=== PATIENT | male | born 1995 | race Caucasian/White ===

== ENCOUNTER 2021-10-30 22:47 | Emergency (ER) | payer OTHER ==
[2021-10-31 00:27] VITALS: O2SAT 97
[2021-10-31 00:44] LABS: Appearance CLEAR (CLEAR); Bilirubin NEGATIVE (NEGATIVE); Dipstick done @ ? MAIN LAB; Glucose NEGATIVE (NEGATIVE); Ketones NEGATIVE (NEGATIVE); Nitrite NEGATIVE (NEGATIVE); Ph 6.5 (5-6); Protein,Urine Dip NEGATIVE (Negative); RBC NEGATIVE Ery/ul (0-5); Urobilinogen 0.2 mg/dL (0-1)
[2021-10-31 00:46] LABS: Mucus SLIGHT /HPF (NEGATIVE); WBC 0-2 /HPF (0-5)
[2021-10-31 00:47] LABS: Urine Cultured Indicated? NO
--- NOTE | 2021-10-31 01:37 | ERPHSYRPT ---
- History of Present Illness Time Seen by Provider: 10/30/21 23:25 Source: patient Exam Limitations: no limitations Patient Subjective Stated Complaint: pt states "I have had trouble peeing. When I do pee it goes everywhere. My mom said there looks like there is something in there." Triage Nursing Assessment: pt ambulated into the er; pt is axo x4; c/o burning with urination; pt denies pain; active bowel sounds in all quads; unable to assess urine; vitals wnl Physician History: Patient is a 26-year-old male presents to emergency department for evaluation of difficulty urinating. Patient states when he urinates his "pee goes everywhere". Patient believes there is something at the distal tip of his urethra. Patient states his mother examined his penis and thinks she identified something in the tip of the penis. Patient states he is experiencing some dysuria. No trauma. No fever. Symptoms have been ongoing for 1 day. No nausea vomiting or diaphoresis. No flank pain or abdominal pain. No hematuria. Patient denies a history of the same. No history of STD. Patient voices no other complaints or concerns at this time. Timing/Duration: today Severity: moderate Modifying Factors: Improves With: nothing Associated Symptoms: denies symptoms Allergies/Adverse Reactions: Sulfa (Sulfonamide Antibiotics) Allergy (Verified 10/30/21 23:13) Hx Tetanus, Diphtheria Vaccination/Date Given: Yes Hx Influenza Vaccination/Date Given: No Hx Pneumococcal Vaccination/Date Given: No Immunizations Up to Date: Yes Travel Risk - International Travel Have you traveled outside of the country in past 3 weeks: No - Coronavirus Screening Are you exhibiting any of the following symptoms?: No Close contact with a COVID-19 positive Pt in past 14-21 Days: No - Vaccine Status Have you recieved a Covid-19 vaccination: No - Review of Systems Constitutional: No Symptoms, No Fever, No Chills Eyes: No Symptoms Ears, Nose, & Throat: No Symptoms Respiratory: No Symptoms, No Cough, No Dyspnea Cardiac: No Symptoms, No Chest Pain, No Edema, No Syncope Abdominal/Gastrointestinal: No Symptoms, No Abdominal Pain, No Nausea, No Vomiting, No Diarrhea Genitourinary Symptoms: No Symptoms, No Dysuria Musculoskeletal: No Symptoms, No Back Pain, No Neck Pain Skin: No Symptoms, No Rash Neurological: No Symptoms, No Dizziness, No Focal Weakness, No Sensory Changes Psychological: No Symptoms Endocrine: No Symptoms Hematologic/Lymphatic: No Symptoms Immunological/Allergic: No Symptoms All Other Systems: Reviewed and Negative - Past Medical History Pertinent Past Medical History: Yes Psycho-Social History: Attention Deficit Disorder - Past Surgical History Past Surgical History: No - Social History Smoking Status: Never smoker Exposure to second hand smoke: No Drug Use: none Patient Lives Alone: No - Nursing Vital Signs Nursing Vital Signs: Initial Vital Signs Temperature 97.8 F 10/30/21 23:15 Pulse Rate 84 10/30/21 23:15 Respiratory Rate 18 10/30/21 23:15 Blood Pressure 145/86 10/30/21 23:15 O2 Sat by Pulse Oximetry 96 10/30/21 23:15 Pain Scale Pain Intensity 0 - Physical Exam General Appearance: no apparent distress, alert Eye Exam: PERRL/EOMI, eyes nml inspection Ears, Nose, Throat Exam: normal ENT inspection, TMs normal, pharynx normal, moist mucous membranes Neck Exam: normal inspection, non-tender, supple, full range of motion Respiratory Exam: normal breath sounds, lungs clear, No respiratory distress Cardiovascular Exam: regular rate/rhythm, normal heart sounds, normal peripheral pulses Gastrointestinal/Abdomen Exam: soft, normal bowel sounds, No tenderness, No mass Male Genitalia Exam: other (There appears to be a black foreign body at the d istal tip of the inner urethra. When patient urinates the foreign body presents itself at the tip of the urethra however recoils back into the distal tip of the urethra when urine flow stops) Back Exam: normal inspection, normal range of motion, No CVA tenderness, No vertebral tenderness Extremity Exam: normal inspection, normal range of motion, pelvis stable Neurologic Exam: alert, oriented x 3, cooperative, normal mood/affect, nml cerebellar function, nml station & gait, sensation nml, No motor deficits Skin Exam: normal color, warm, dry, No rash Lymphatic Exam: No adenopathy SpO2 Interpretation: normal SpO2: 97 O2 Delivery: Room Air - Course Nursing assessment & vital signs reviewed: Yes - CT Exams Abdomen/Pelvis CT Interpretation: Tele-radiologist Report (There is mild focal dilation in the distal urethra near the tip of the penis. This may be a possible stricture at the level of the meatus. Tiny fat-containing umbilical hernia. CT scan otherwise negative) Ordered Tests: Active Orders 24 hr Category Date Time Status ABDOMEN AND PELVIS W/0 CONTRAS [CT] Stat Exams 10/30/21 23:25 Taken UA W/RFX CULTURE Stat Lab 10/31/21 00:25 Completed Lab/Rad Data: Laboratory Results 10/31/21 10/30/21 Range/Units 00:25 00:25 Urinalys Dipstick Clnc MAIN LAB Urine Color YELLOW (YELLOW) Urine Appearance CLEAR (CLEAR) Urine pH 6.5 (5-6) Ur Specific Savery 1.020 (1.005-1.025) POC Urine Protein Conf NEGATIVE (Negative) Urine Ketones NEGATIVE (NEGATIVE) Urine Nitrite NEGATIVE (NEGATIVE) Urine Bilirubin NEGATIVE (NEGATIVE) Urine Urobilinogen 0.2 (0-1) mg/dL Urine Leukocytes NEGATIVE (NEGATIVE) Urine WBC (Auto) 0-2 (0-5) /HPF Urine RBC (Auto) NONE (0-2) /HPF U Epithel Cells (Auto) NONE (FEW) /HPF Urine Bacteria (Auto) NONE (NEGATIVE) /HPF Urine RBC NEGATIVE (0-5) José Miguel/ul Other Casts (Auto) NEGATIVE (NEGATIVE) /LPF Urine Mucus (Auto) SLIGHT (NEGATIVE) /HPF Ur Culture Indicated? NO Urine Glucose NEGATIVE (NEGATIVE) mg/dL Chlamydia DNA Probe NOT DETECTED (NEGATIVE) N.gonorrhoeae DNA Probe NOT DETECTED (NEGATIVE) - Progress Progress: improved Progress Note: Case discussed with Dr. Woodard of urology who states patient can be seen today in his office. Patient to call [phone] for a follow-up appointment today/this morning. Will discharge patient home. Patient agrees to follow-up with Dr. Woodard Portions of this note were created with voice recognition technology. There may be grammatical, spelling, punctuation or sound alike errors 10/31/21 02:42 Counseled pt/family regarding: lab results, diagnosis, need for follow-up, rad results - Departure Departure Disposition: Home Clinical Impression: Penile stricture Condition: Stable Critical Care Time: No Referrals: LEELEE WOODARD DO [NON-STAFF PHY W/O PRIVILEGES] - Follow up/PCP as directed Additional Instructions: Please call [phone] this morning for follow-up appointment with urology Discharge/Care Plan TERRI CLARKE was seen on 10/31/21 in the Emergency Room. The patient was counseled regarding Diagnosis,Lab results, Imaging studies, need for follow up and when to return to the Emergency Room. Prescriptions given: Discharge Note I have spoken with the patient and/or caregivers. I have explained the patient's condition, diagnosis and treatment plan based on the information available to me at this time. I have answered the patient's and/or caregiver's questions and addressed any concerns. The patient and/or caregivers have as good understanding of the patient's diagnosis, condition and treatment plan as can be expected at this point. The vital signs have been stable. The patient's condition is stable and appropriate for discharge from the emergency department. The patient will pursue further outpatient evaluation with the primary care physician or other designated or consulting physician as outlined in the discharge instructions. The patient and/or caregivers are agreeable to this plan of care and follow-up instructions have been explained in detail. The patient and/or caregivers have received these instruction. The patient/and or caregivers are aware that any significant change in condition or worsening of symptoms should prompt an immediate return to this or the closest emergency department or call 911.
[2021-10-31 02:06] VITALS: BP 136/81; PULSE 65
[2021-10-31 02:20] LABS: CHLAMYDIA DNA NOT DETECTED (NEGATIVE); GC DNA Probe NOT DETECTED (NEGATIVE)
--- NOTE | 2021-10-31 09:02 | XRAY ---
Indication: Ureterolithiasis. Dysuria. Multiple contiguous axial images obtained through the abdomen and pelvis without contrast. Comparison: None Lung bases clear. Heart not enlarged. Stomach is markedly distended with food/fluid. Noncontrasted stomach and bowel loops appear nonobstructed. Normal appendix. Mild diffuse scattered colonic fecal debris throughout. Gallbladder contracted without gallstones. No free fluid/air. Distal urethra of the penis demonstrates focal distention up to 1 cm without calculus. Remaining liver, gallbladder, pancreas, spleen, adrenal glands, kidneys, ureters, bladder, and aorta are unremarkable for noncontrast exam. Osseous structures intact. Incidental left L5 spondylolysis without listhesis. Impression: 1. Focal distal urethral distention without calculus. Rule out stricture. 2. Mild diffuse fecal stasis and L5 spondylolysis without listhesis. 3. Remaining CT abdomen/pelvis without contrast exam is negative. Comment: Preliminary interpretation made by [facility]. No critical discrepancy.
== END 2021-10-31 02:50 | disposition home or self-care (01) ==
LOC: ED 22:47
DX: T19.4XXA Foreign body in penis, initial encounter (principal); R39.198 Other difficulties with micturition; R30.9 Painful micturition, unspecified; Z28.310 Unvaccinated for COVID-19
CPT/HCPCS: 74176; 81015; 87491; 87591; 99283